=== PATIENT | male | born 1975 | race Hispanic/Latino ===

== ENCOUNTER 2017-07-20 14:23 | Emergency (ER) | payer SELFPAY ==
[2017-07-20 14:24] VITALS: BMI 28.5
[2017-07-20 14:46] VITALS: TEMP 98.6; O2SAT 98
[2017-07-20] MEDS ORDERED: TDAP Vaccine 0.5 mL Syr IM ONE (14:58)
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
[2017-07-20 16:08] VITALS: BP 129/81; PULSE 87; RESP 18
== END 2017-07-20 16:07 | disposition home or self-care (01) ==
LOC: ED 14:23
DX: S91.114A Laceration without foreign body of right lesser toe(s) without damage to nail, initial encounter (principal); W10.8XXA Fall (on) (from) other stairs and steps, initial encounter; Y92.89 Other specified places as the place of occurrence of the external cause